=== PATIENT | female | born 1995 | race African-American/Black ===

== ENCOUNTER 2017-03-01 11:49 | Emergency (ER) | payer BC, OTHER ==
[~2017-03-01] VITALS: Ht 167.6 cm; Wt 74.4 kg
--- NOTE | 2017-03-01 11:49 | NUR ---
TRIAGED AND BROUGHT BACK TO BED #4, REPORT GIVEN TO NURSE
[2017-03-01 11:50] VITALS: BP_SYST 107
--- NOTE | 2017-03-01 12:00 | NUR ---
Pt c/o bruising to right upper leg x6 days with pain to thigh and ankle +mild swelling distal lower leg. Denies trauma. No edema noted. Denies shortness of breath. Pt concerned about DVT, states "I think I have vascular problems with this leg". No acute distress. Will continue to monitor.
--- NOTE | 2017-03-01 12:25 | NUR ---
Dr. Chilel at bedside for evaluation
--- NOTE | 2017-03-01 12:30 | NUR ---
Yina burciaga in ED - 03/01/17 at [email or web address] Chilel at bedside for evaluation
[2017-03-01] MEDS ORDERED: IBUPROFEN 400 MG TABLET PO ONE (14:00)
--- NOTE | 2017-03-01 14:55 | NUR ---
Patient given written and verbal discharge instructions and verbalizes understanding. ER MD discussed with patient the results and treatment provided. Given copies of tests performed in ER. Patient in stable condition. ID arm band removed. Rx of Flexeril given. Patient educated on pain management and to follow up with PMD. Pain Scale 6/10, patient states I just wasnt to leave at this point. Opportunity for questions provided and answered.
[2017-03-01 14:56] VITALS: BP_SYST 121
== END 2017-03-01 14:55 | disposition home or self-care (01) ==
LOC: SED 11:49
DX: M79.661 Pain in right lower leg (principal)
CPT/HCPCS: 81025; 93971; 99284